=== PATIENT | female | born 1970 | race American Indian/Alaskan Native ===

== ENCOUNTER 2018-09-01 09:11 | Day surgery (SDC) | payer BC ==
[2018-08-29 09:40] VITALS: BMI 34.7
[2018-09-01] MEDS ORDERED: HYDROmorphone 0.5 mg/0.5 ml ISec IVP PRN (10:11)
[2018-09-01] MEDS ORDERED: Propofol 10 mg/ml Inj (20 ML) ONE (10:20)
[2018-09-01] MEDS ORDERED: Midazolam 2 MG/2 ML VIAL ONE (10:20)
[2018-09-01] MEDS ORDERED: Lidocaine Hydrochloride 5 ML INJ ONE (10:24)
[2018-09-01] MEDS ORDERED: Albuterol HFA 90 mcg/actuation (8 g) ONE (10:26)
[2018-09-01] MEDS ORDERED: ePHEDrine 50 mg/ml Inj ONE (10:46)
[2018-09-01 11:32] VITALS: O2SAT 100
[2018-09-01 12:35] VITALS: RESP 18
[2018-09-01 12:56] VITALS: BP 111/77; PULSE 69; TEMP 97.8
--- NOTE | 2018-09-01 20:26 | OP ---
PROCEDURE DATE: 09/01/2018 PREOPERATIVE DIAGNOSES: Menometrorrhagia and endocervical polyp and fibroid uterus, multiple. POSTOPERATIVE DIAGNOSES: Menometrorrhagia and endocervical polyp and fibroid uterus, multiple. PROCEDURES PERFORMED: Hysteroscopy diagnostic with endocervical polypectomy and fractional dilatation and curettage. ANESTHESIA: General. ANESTHESIOLOGIST: Dr. Sánchez. SURGEON: Grecia Heart MD. OPERATIVE FINDINGS: Cervix is firm and closed and there was noted an endocervical polyp measuring 1 x 2 cm in diameter at 9 o'clock station and the uterus was noted to be enlarged, approximately 14 to 16 weeks gestation, firm, nodular and irregular and the endocervical finding showed some irregularity of the endometrial cavity as well as submucous and intramural fibroids noted. Adnexa was negative. OPERATIVE TECHNIQUE: The patient was prepped and draped in the usual sterile manner under general anesthesia. Internal examination was performed. Anterior and posterior vaginal retractors were applied. The uterus was sounded to 10 cm in diameter and Hegar dilators were applied direct in the cervical canal. The cervical polyp was grasped by a tenaculum forceps and was excised from its base at 9 o'clock. After establishing hemostasis, the hysteroscope was introduced inside the endocervical and gently into the endometrial cavity. There was discharge seen in the uterine naik as well as the submucous fibroids noted over the anterior and posterior surface of the uterus with minimal signs of bleeding over the anterior and posterior wall of the uterus. After thorough visualization of the endometrial cavity, the hysteroscope was removed and the distention medium used in the hysteroscope was the Ringer's lactated solution, and after thorough visualization of the endocervical cavity was performed, the hysteroscope was removed and fractional dilatation and curettage followed. Endocervical curettage was curetted with minimal tissues obtained and the intermittent cavity was curetted with a size #3 endocervical endometrial curettage, thereby obtaining minimal amount of endometrial tissues. After establishing hemostasis, the base of the endocervical polyp was cauterized with electrocautery. After establishing hemostasis, anterior and posterior vaginal retractors were removed. The patient was transferred to the recovery room in stable condition. Estimated blood loss was around 10 mL. Specimens consisted of endocervical polyp and fractional dilatation and curettage were sent to the laboratory for a histopathological examination. Grecia Heart MD
== END 2018-09-01 12:55 | disposition home or self-care (01) ==
LOC: C.SDS 09:11
PROVIDERS: ATTEND Obstetrics & Gynecology
DX: N92.0 Excessive and frequent menstruation with regular cycle (principal); N84.0 Polyp of corpus uteri; D25.9 Leiomyoma of uterus, unspecified; N92.1 Excessive and frequent menstruation with irregular cycle
CPT/HCPCS: 58558; 88305; J1100; J2250; J2405; J2704; J3010